=== PATIENT | female | born 1995 | race Two or more races ===

== ENCOUNTER 2019-08-23 02:33 | Inpatient (IN) | payer OTHER ==
[~2019-08-23] VITALS: Ht 121.9 cm; Wt 46.7 kg
[2019-08-23] MEDS ORDERED: PRENATAL CAPLE1 EAC1 PO (08:27)
== END 2019-08-25 12:30 | disposition home or self-care (01) | DRG 807 ==
LOC: OBS/DEL 02:33 → LDR 07:59 → OB/GYN 07:59
PROVIDERS: ADMIT Obstetrics & Gynecology; ATTEND Obstetrics & Gynecology
PROC: 10E0XZZ Delivery of Products of Conception, External Approach (ICD-10-PCS; principal; 2019-08-23)
PROC: 4A0HXFZ Measurement of Products of Conception, Cardiac Rhythm, External Approach (ICD-10-PCS; 2019-08-23)
PROC: 0UQGXZZ Repair Vagina, External Approach (ICD-10-PCS; 2019-08-23)
DX: O71.4 Obstetric high vaginal laceration alone (principal); Z37.0 Single live birth; Z3A.38 38 weeks gestation of pregnancy